=== PATIENT | male | born 1960 | race Caucasian/White ===

== ENCOUNTER → 2019-03-15 | Outpatient (CLI) | payer BC, OTHER ==
--- NOTE | 2019-03-15 16:10 | PCVCIMAG ---
APPROVED REPORT Study performed: 03/15/2019 14:59:26 Exam: Stress Echocardiogram Indication: Syncope, Hyperlipidemia Patient Location: Echo lab Stress Nurse: Nona Palma RN Status: routine Ht: 6 ft 2 in HR: 90 bpm BP: 120/80 mmHg Rhythm: NSR Medical History Exercise History: Physically active Procedure The patient underwent an Exercise Stress Test using the Gelacio Protocol. Blood pressure, heart rate, and EKG were monitored. An Echocardiogram was performed by copier and printer field technician in four stages in quad fashion. At peak stress, four selected images were obtained and placed side by side with resting images for comparison. Stress Test Details Stress Test: Exercise stress testing was performed using a Gelacio protocol. HR Resting HR: 90 bpmMax Heart Rate (APMHR): 163 bpm Max HR Achieved: 157 bpmTarget HR (85% APMHR): 138 bpm % of APMHR: 96 Recovery HR: 102 bpm HR response to stress: Normal HR response to stress BP Resting BP: 120/80 mmHg Max BP: 220/60 mmHg Recovery BP: 140/78 mmHg BP response to stress: Normal blood pressure response to stress. ECG Resting ECG: Sinus Rhythm Stress ECG: Sinus Tachycardia ST Change: Normal Maximum ST Deviation: 0 mm Arrhythmia: None Recovery ECG: Sinus Rhythm Recovery ST Change: Normal Recovery ST Deviation: 0 mm Recovery Arrhythmia: None Clinical Reason for Termination: Completed protocol Exercise duration: 11 min sec Highest Stage Achieved: Stage 4: 4.2 mph at 16% grade. Exercise capacity: 13.40 METs Overall Exercise Capacity for Age: Normal Angina Score: None Stress ECG Conclusion ECG: Non-ischemic Clinical: Non-ischemic Cerna Treadmill Score is 11.0 which is Low risk. Pre-Stress Echo The resting Echocardiogram showed normal left ventricular contractility with an estimated Ejection Fraction of about 55-60%. Normal wall motion in all segments on baseline images. Post-Stress Echo The stress Echocardiogram showed normal left ventricular contractility with an estimated Ejection Fraction of about 60-65%. Normal augmentation of wall motion in all segments on post stress images. Clinical No clinical or ECG evidence for ischemia. Conclusion Clinical Response: Non-ischemic Exercise Capacity: Superior Stress ECG Response: Non-ischemic Stress Echo Images: Non-ischemic The left ventricle is normal in size and wall thickness in both the rest and stress images. Normal stress echocardiogram with maximal exercise stress. Other Information Study Quality: Adequate <Conclusion> The left ventricle is normal in size and wall thickness in both the rest and stress images. Normal stress echocardiogram with maximal exercise stress.
--- NOTE | 2019-03-15 16:14 | PCVCIMAG ---
APPROVED REPORT Study performed: 03/15/2019 14:42:01 EXAM: Comprehensive 2D, Doppler, and color-flow Echocardiogram Patient Location: Echo lab Status: routine BSA: 2.29 HR: 90 bpmBP: 120/80 mmHg Rhythm: NSR Other Information Study Quality: Technically Difficult Indications Syncope Hyperlipidemia 2D Dimensions IVSd: 10.02 (7-11mm)LVOT Diam: 19.86 (18-24mm) LVDd: 44.75 mm PWd: 8.11 (7-11mm)Ascending Ao: 32.70 (22-36mm) LVDs: 27.06 (25-40mm) Left Atrium: 35.90 (27-40mm) Aortic Root: 29.08 mm LV Single Plane 4CH: 55.69 % LV Single Plane 2CH: 62.32 % Biplane EF: 59.3 % Volumes Left Atrial Volume (Systole) Single Plane 4CH: 27.03 mLSingle Plane 2CH: 39.18 mL LA ESV Index: 16.00 mL/m2 Aortic Valve AoV Peak Oliverio.: 1.67 m/s AO Peak Gr.: 11.12 mmHgLVOT Max P.92 mmHg LVOT Max V: 1.11 m/s IRMA Vmax: 2.06 cm2 Mitral Valve E/A Ratio: 1.0 MV Decel. Time: 135.57 ms MV E Max Oliverio.: 0.98 m/s MV A Oliverio.: 0.96 m/s IVRT: 58.82 ms TDI E/Lateral E': 8.91E/Medial E': 8.17 Medial E' Oliverio.: 0.12 m/s Lateral E' Oliverio.: 0.11 m/s Pulmonary Valve PV Peak Gr.: 3.81 mmHg Pulmonary Vein P Vein S: 0.58 m/sP Vein A: 0.57 m/s P Vein D: 0.41 m/sP Vein A Dur.: 114.2 msec P Vein S/D Ratio: 1.41 Left Ventricle The left ventricle is normal size. There is normal LV segmental wall motion. There is normal left ventricular wall thickness. Left ventricular systolic function is normal. The left ventricular ejection fraction is within the normal range. LVEF is 60-65%. The left ventricular diastolic function is normal. Right Ventricle The right ventricle is normal size. The right ventricular systolic function is normal. Atria The left atrium size is normal. The right atrium size is normal. Aortic Valve The aortic valve is trileaflet, mildly Trace aortic insufficiency There is no aortic valvular stenosis. Mitral Valve The mitral valve is normal in structure. There is no mitral valve regurgitation noted. No evidence of mitral valve stenosis. Tricuspid Valve The tricuspid valve is normal in structure. There is no tricuspid valve regurgitation noted. Pulmonic Valve The pulmonary valve is normal in structure. There is no pulmonic valvular regurgitation. Great Vessels The aortic root is normal in size. IVC is normal in size and collapses >50% with inspiration. Pericardium There is no pericardial effusion. <Conclusion> Left ventricular systolic function is normal. There is normal LV segmental wall motion. LVEF is 60-65%. Normal diastolic function The aortic valve is trileaflet, mildly. Trace aortic insufficiency, no stenosis The mitral valve is normal in structure. No mitral valve regurgitation. Pulmonary artery pressure could not be reliably ascertained There is no pericardial effusion.
== END | disposition home or self-care (01) ==
LOC: PCVCIMAG 14:36
PROVIDERS: ATTEND Internal Medicine
DX: R55 Syncope and collapse (principal); E78.5 Hyperlipidemia, unspecified
CPT/HCPCS: 93306; 93351